=== PATIENT | male | born 1935 | race Caucasian/White ===

== ENCOUNTER 2019-05-25 13:21 | Outpatient (CLI) | payer MEDICARE, OTHER ==
[~2019-05-25 13:21] MED LIST: DUTA0.5C PO; FINA5TAB4 PO; HYDROCHLOROTH12.5 MG PO; IRBE300T8 PO; NAPR1TAB21 PO; NIAC500T PO; TADA5TAB2 PO; TAMS0.4C2 PO
== END 2019-05-25 23:59 | disposition home or self-care (01) ==
LOC: WOUND 13:21
PROVIDERS: ATTEND Nurse Practitioner Family
DX: Z43.5 Encounter for attention to cystostomy (principal); I10 Essential (primary) hypertension; E78.5 Hyperlipidemia, unspecified; N28.9 Disorder of kidney and ureter, unspecified; Z87.891 Personal history of nicotine dependence; Z85.51 Personal history of malignant neoplasm of bladder; Z85.46 Personal history of malignant neoplasm of prostate; Z90.6 Acquired absence of other parts of urinary tract
CPT/HCPCS: G0463